=== PATIENT | male | born 1980 | race American Indian/Alaskan Native ===

== ENCOUNTER 2018-12-04 12:27 | Emergency (ER) | payer OTHER ==
--- NOTE | 2018-12-04 12:46 | Emergency Department Report ---
Chief Complaint: Extremity Injury, Upper Stated Complaint: SWOLLEN HAND Time Seen by Provider: 12/04/18 12:43 - HPI History of Present Illness: PAIN SWELLING SAT NO TRAUMA CALLED OFF SUN NEEDS WORK NOTE [facility] BROKEN WRIST [id number] NEVER SET LEFT HANDED RX NONE PSH BACK NEURO INTACT MSE COMPLETED - Exam Vital Signs: Vital Signs 12/04/18 12:38 Temperature 97.8 F Pulse Rate 67 Respiratory 16 Rate Blood Pressure 117/76 O2 Sat by Pulse 100 Oximetry MSE screening note: Focused history and physical exam performed. Due to findings the following was ordered: ED Disposition for MSE Condition: Stable
--- NOTE | 2018-12-04 13:22 | Emergency Department Report ---
Upper Extremity - HPI Chief Complaint: Extremity Injury, Upper Stated Complaint: SWOLLEN HAND Time Seen by Provider: 12/04/18 12:43 Upper Extremity: Left Hand Occurred When: >5 Days Mechanism: Unsure Severity: mild Symptoms: Yes Pain with Movement, Yes Swelling (PER PT), No Deformity, No Limited Range of Movement, No Numbness, No Weakness, No Bruising/Ecchymosis, No Laceration or Abrasion Other History: PT IS 38 YO [employer]. HX FX L WRIST YEARS AGO. NOW WITH HAND PAIN. HE IS L HANDED. NO NEW TRAUMA. NEUROVASC INTACT ED Review of Systems ROS: Stated complaint: SWOLLEN HAND Other details as noted in HPI Comment: All other systems reviewed and negative ED Past Medical Hx - Past Medical History Previous Medical History?: No Hx Seizures: No - Surgical History Past Surgical History?: Yes Additional Surgical History: back surgery - Social History Smoking Status: Never Smoker Substance Use Type: None - Medications Home Medications: Home Medications Medication Instructions Recorded Confirmed Last Taken Type Ibuprofen [Motrin] 800 mg PO Q8HR PRN #25 tablet 12/04/18 Unknown Rx predniSONE [Deltasone] 20 mg PO DAILY #5 tablet 12/04/18 Unknown Rx Upper Extremity Exam - Exam General: Vital signs noted. No distress. Alert and acting appropriately. Head and Torso: No HEENT Abnormality, No Back Tenderness Shoulder Exam: Yes Normal Range of Motion in Shoulder, No Shoulder Tenderness, No Clavicle Tenderness, No Shoulder Deformity, No AC Joint Tenderness Arm Exam: Yes Arm Deformity (OLD WRIST FX), No Arm/Humerus Tenderness Elbow: Yes Normal Range of Motion in Elbow, No Elbow Tenderness, No Elbow Deformity Forearm: No Forearm Tenderness Wrist: Yes Normal ROM in Wrist, Yes Wrist Deformity, No Wrist Tenderness, No Snuffbox Tenderness, No Pain with Axial Thumb Compression Hand: Yes Normal ROM in Digit(s), No Hand Tenderness, No Hand Deformity, No Digit Tenderness, No Digit(s) Deformity, No Tendon Dysfunction CMS Exam: Yes Normal Distal Pulses, Yes Normal Capillary Refill, Yes Normal Distal Sensation, No Broken Skin ED Course Vital Signs 12/04/18 12:38 Temperature 97.8 F Pulse Rate 67 Respiratory 16 Rate Blood Pressure 117/76 O2 Sat by Pulse 100 Oximetry ED Medical Decision Making - Radiology Data Radiology results: report reviewed, image reviewed - Medical Decision Making XRAY NAP PT HAS KNOWN OLD FX L HAND L HANDED DRIVES FORK LIFT DC HOME WITH NSAID AND FOLLOW UP Vital Signs (72 hours) 12/04/18 12:38 Temperature 97.8 F Pulse Rate 67 Respiratory 16 Rate Blood Pressure 117/76 O2 Sat by Pulse 100 Oximetry Critical care attestation.: If time is entered above; I have spent that time in minutes in the direct care of this critically ill patient, excluding procedure time. ED Disposition Clinical Impression: Arthritis, Hand pain, left Disposition: DC-01 TO HOME OR SELFCARE Is pt being admited?: No Does the pt Need Aspirin: No Condition: Stable Instructions: Osteoarthritis (ED) Additional Instructions: ICE REST ELEVATE THE HAND FOR COMFORT MED ORDERED TODAY FOLLOW UP PCP REFERRAL BELOW DUE TO YOUR PREVIOUS FRACTURE YOU WILL HAVE FLARES OF THIS FROM TIME TO TIME. Prescriptions: predniSONE [Deltasone] 20 mg PO DAILY #5 tablet Ibuprofen [Motrin] 800 mg PO Q8HR PRN #25 tablet PRN Reason: Pain , Severe (7-10) Referrals: ALIZA VIDALES MD [Primary Care Provider] - 3-5 Days Time of Disposition: 13:25
--- NOTE | 2018-12-04 13:49 | XRay Report ---
LEFT HAND, 3 views: History: Hand pain The bony architecture is intact. Bony alignment is normal. No soft tissue abnormalities are seen. The joint spaces appear preserved. There appears to be a chronic, healed fracture of the distal radius with posterior angulation of the distal radius articular surface. IMPRESSION: Normal left hand. Chronic distal left radius fracture with mild posterior angulation.
[2018-12-04 20:57] VITALS: BP 117/76
== END 2018-12-04 14:05 | disposition home or self-care (01) ==
LOC: ED 12:27
DX: M79.642 Pain in left hand (principal)
CPT/HCPCS: 99283